=== PATIENT | male | born 1945 | race Caucasian/White ===

== ENCOUNTER 2020-02-26 13:42 | Observation (INO) | payer MEDICARE, OTHER ==
--- NOTE | 2020-02-26 14:34 | EDM.PDOC ---
ED HPI GENERAL MEDICAL PROBLEM - General Chief Complaint: General Time Seen by Provider: 02/26/20 14:34 - History of Present Illness INITIAL COMMENTS - FREE TEXT/NARRATIVE: Nahun presents today for complaints of generalized weakness and malaise for 2+ weeks. [facility] because [facility] was recalled. He states he just received more metformin in the mail. He denies fever, chills, nausea, vomiting, constipation or other concerns. - Related Data Allergies Allergy/AdvReac Type Severity Reaction Status Date / Time No Known Allergies Allergy Verified 02/26/20 18:12 Home Meds: Home Meds Aspirin [Adult Low Dose Aspirin EC] 81 mg PO DAILY 12/14/13 [History] Omeprazole [Prilosec] 20 mg PO DAILY PRN 12/14/13 [History] Pimecrolimus [Elidel] 1 applic TOP BID PRN 12/14/13 [History] Pravastatin [Pravachol] 40 mg PO DAILY 12/14/13 [History] Ibuprofen 600 mg PO ASDIRECTED 12/15/13 [History] Valsartan 80 mg PO DAILY 02/26/20 [History] metFORMIN [Glucophage] 500 mg PO BIDMEALS 02/26/20 [History] Past Medical History HEENT History: Reports: Impaired Vision Cardiovascular History: Reports: Arrhythmia, High Cholesterol, Hypertension, Pacemaker Gastrointestinal History: Reports: GERD Genitourinary History: Reports: Chronic Renal Insuffiency Endocrine/Metabolic History: Reports: Diabetes, Type II - Past Surgical History Cardiovascular Surgical History: Reports: Pacer GI Surgical History: Reports: Hernia Repair/Other Musculoskeletal Surgical History: Reports: Knee Replacement Social & Family History - Tobacco Use Smoking Status *Q: Never Smoker - Caffeine Use Caffeine Use: Reports: Coffee - Recreational Drug Use Recreational Drug Use: No ED ROS GENERAL - Review of Systems Review Of Systems: See Below Constitutional: Reports: Malaise, Weakness, Fatigue, Decreased Appetite, Other (increased thirst). Denies: Fever, Chills, Night Sweats, Diaphoresis, Weight Loss, Weight Gain HEENT: Reports: No Symptoms Respiratory: Reports: No Symptoms Cardiovascular: Reports: No Symptoms Endocrine: Reports: No Symptoms GI/Abdominal: Reports: No Symptoms : Reports: No Symptoms Musculoskeletal: Reports: No Symptoms Skin: Reports: No Symptoms Neurological: Reports: No Symptoms Psychiatric: Reports: No Symptoms Hematologic/Lymphatic: Reports: No Symptoms Immunologic: Reports: No Symptoms ED EXAM, GENERAL - Physical Exam Exam: See Below Exam Limited By: No Limitations General Appearance: Alert, WD/WN, No Apparent Distress Eye Exam: Bilateral Eye: Normal Inspection, PERRL Ears: Normal External Exam, Normal Canal, Hearing Grossly Normal, Normal TMs Nose: Normal Inspection, Normal Mucosa, No Blood Throat/Mouth: Normal Lips, Normal Teeth, Normal Gums, Normal Voice, No Airway Compromise, Other (dry mucous membranes) Head: Atraumatic, Normocephalic Neck: Normal Inspection, Supple, Non-Tender, Full Range of Motion. No: Lymphadenopathy (R), Lymphadenopathy (L) Respiratory/Chest: No Respiratory Distress, Lungs Clear, Normal Breath Sounds, No Accessory Muscle Use, Chest Non-Tender. No: Crackles, Rales, Rhonchi, Wheezing Cardiovascular: Normal Peripheral Pulses, Regular Rate, Rhythm, No Edema, No Murmur, No Rub, Other (Pacemaker) Peripheral Pulses: 2+: Radial (L), Radial (R) GI/Abdominal: Normal Bowel Sounds, Soft, Non-Tender, No Organomegaly, No Distention, No Abnormal Bruit, No Mass Back Exam: Normal Inspection, Full Range of Motion. No: CVA Tenderness (R), CVA Tenderness (L) Extremities: Normal Inspection, Normal Range of Motion, Non-Tender, No Pedal Edema, Normal Capillary Refill Neurological: Alert, Oriented, CN II-XII Intact, Normal Cognition, Normal Gait, Normal Reflexes, No Motor/Sensory Deficits Psychiatric: Normal Affect, Normal Mood Skin Exam: Warm, Dry, Intact, Normal Color, No Rash Lymphatic: No Adenopathy Course - Vital Signs Last Recorded V/S: Last Vital Signs Temp 37.2 C 02/26/20 18:16 Pulse 105 H 02/26/20 18:16 Resp 18 02/26/20 18:16 BP 131/54 L 02/26/20 18:16 Pulse Ox 97 02/26/20 18:16 - Orders/Labs/Meds Orders: Active Orders 24 hr Category Date Time Status CXR [Chest 2V] [CR] Stat Exams 02/26/20 16:54 Taken Sodium Chloride 0.9% [Saline Flush] Med 02/26/20 14:56 Active 10 ml FLUSH ASDIRECTED PRN Saline Lock Insert [OM.PC] Routine Oth 02/26/20 14:56 Ordered Medication Orders Acetaminophen (Tylenol) 650 mg PO Q4H PRN PRN Reason: Pain (Mild 1-3)/fever Aspirin (Halfprin) 81 mg PO DAILY [facility] Sodium Chloride (Normal Saline) 1,000 mls @ 125 mls/hr IV ASDIRECTED [facility] Last Admin: 02/26/20 18:16 Dose: 125 mls/hr Documented by: TIAGO Insulin Human Lispro (Humalog) 0 unit SUBCUT QIDACANDBED [facility]; Protocol Last Admin: 02/26/20 21:20 Dose: 2 units Documented by: NIK Cosigned by: TITO Lorazepam (Ativan) 0.5 mg IVPUSH Q4H PRN PRN Reason: Nausea/Vomiting Magnesium Hydroxide (Milk Of Magnesia) 30 ml PO Q12H PRN PRN Reason: Constipation Melatonin (Melatonin) 9 mg PO BEDTIME PRN PRN Reason: sleep Non-Formulary Medication (Valsartan [Valsartan]) 80 mg PO DAILY [facility] Ondansetron HCl (Zofran) 4 mg IV Q6H PRN PRN Reason: Nausea/Vomiting Ondansetron HCl (Zofran Odt) 4 mg PO Q6H PRN PRN Reason: Nausea able to take PO Senna/Docusate Sodium (Senna Plus) 1 tab PO BID PRN PRN Reason: Constipation Sodium Chloride (Saline Flush) 10 ml FLUSH ASDIRECTED PRN PRN Reason: Keep Vein Open Last Admin: 02/26/20 15:31 Dose: 10 ml Documented by: SORIN Labs: Laboratory Tests 02/26/20 02/26/20 02/26/20 Range/Units 14:55 14:55 14:55 WBC 7.5 (4.5-11.0) K/uL RBC 4.76 (4.30-5.90) M/uL Hgb 14.0 (12.0-15.0) g/dL Hct 40.8 (40.0-54.0) % MCV 86 (80-98) fL MCH 29 (27-31) pg MCHC 34 (32-36) % Plt Count 160 (150-400) K/uL Neut % (Auto) 55 (36-66) % Lymph % (Auto) 26 (24-44) % [place] % (Auto) 17 H (2-6) % Eos % (Auto) 0 L (2-4) % Baso % (Auto) 2 H (0-1) % ESR (0-20) mm/hr Sodium 130 L (140-148) mmol/L Potassium 4.1 (3.6-5.2) mmol/L Chloride 95 L (100-108) mmol/L Carbon Dioxide 25 (21-32) mmol/L Anion Gap 14.1 H (5.0-14.0) mmol/L BUN 29 H (7-18) mg/dL Creatinine 1.9 H (0.8-1.3) mg/dL Est Cr Clr Drug Dosing 31.41 mL/min Estimated GFR (MDRD) 35 L (>60) Glucose 228 H (74-106) mg/dL Lactic Acid (0.4-2.0) mmol/L Calcium 9.2 (8.5-10.1) mg/dL Total Bilirubin 1.6 H (0.2-1.0) mg/dL AST 53 H (15-37) U/L ALT 65 (12-78) U/L Alkaline Phosphatase 83 (46-116) U/L C-Reactive Protein (0.0-0.3) mg/dL Total Protein 8.2 (6.4-8.2) g/dL Albumin 3.6 (3.4-5.0) g/dL Globulin 4.6 H (2.3-3.5) g/dL Albumin/Globulin Ratio 0.8 L (1.2-2.2) TSH, Ultra Sensitive 2.762 (0.358-3.740) uIU/mL Urine Color [place] A (YELLOW) Urine Appearance Slightly cloudy A (CLEAR) Urine pH 5.5 (5.0-8.0) Ur Specific [place] 1.025 (1.008-1.030) Urine Protein Trace H (NEGATIVE) mg/dL Urine Glucose (UA) 100 H (NEGATIVE) mg/dL Urine Ketones Negative (NEGATIVE) mg/dL Urine Occult Blood Negative (NEGATIVE) Urine Nitrite Negative (NEGATIVE) Urine Bilirubin Small H (NEGATIVE) Urine Urobilinogen 1.0 (0.2-1.0) EU/dL Ur Leukocyte Esterase Negative (NEGATIVE) Urine RBC Not seen (0-5) Urine WBC 0-5 (0-5) Ur Epithelial Cells Rare Amorphous Sediment Not seen Urine Bacteria Few Urine Mucus Not seen 02/26/20 02/26/20 02/26/20 Range/Units 16:14 16:14 16:14 WBC (4.5-11.0) K/uL RBC (4.30-5.90) M/uL Hgb (12.0-15.0) g/dL Hct (40.0-54.0) % MCV (80-98) fL MCH (27-31) pg MCHC (32-36) % Plt Count (150-400) K/uL Neut % (Auto) (36-66) % Lymph % (Auto) (24-44) % [place] % (Auto) (2-6) % Eos % (Auto) (2-4) % Baso % (Auto) (0-1) % ESR 88 H (0-20) mm/hr Sodium (140-148) mmol/L Potassium (3.6-5.2) mmol/L Chloride (100-108) mmol/L Carbon Dioxide (21-32) mmol/L Anion Gap (5.0-14.0) mmol/L BUN (7-18) mg/dL Creatinine (0.8-1.3) mg/dL Est Cr Clr Drug Dosing mL/min Estimated GFR (MDRD) (>60) Glucose (74-106) mg/dL Lactic Acid 2.6 H (0.4-2.0) mmol/L Calcium (8.5-10.1) mg/dL Total Bilirubin (0.2-1.0) mg/dL AST (15-37) U/L ALT (12-78) U/L Alkaline Phosphatase (46-116) U/L C-Reactive Protein 6.12 H (0.0-0.3) mg/dL Total Protein (6.4-8.2) g/dL Albumin (3.4-5.0) g/dL Globulin (2.3-3.5) g/dL Albumin/Globulin Ratio (1.2-2.2) TSH, Ultra Sensitive (0.358-3.740) uIU/mL Urine Color (YELLOW) Urine Appearance (CLEAR) Urine pH (5.0-8.0) Ur Specific [place] (1.008-1.030) Urine Protein (NEGATIVE) mg/dL Urine Glucose (UA) (NEGATIVE) mg/dL Urine Ketones (NEGATIVE) mg/dL Urine Occult Blood (NEGATIVE) Urine Nitrite (NEGATIVE) Urine Bilirubin (NEGATIVE) Urine Urobilinogen (0.2-1.0) EU/dL Ur Leukocyte Esterase (NEGATIVE) Urine RBC (0-5) Urine WBC (0-5) Ur Epithelial Cells Amorphous Sediment Urine Bacteria Urine Mucus Patient lab work reviewed, Dr. France notified. Meds: Medications Generic Name Dose Route Start Last Admin Trade Name Freq PRN Reason Stop Dose Admin Acetaminophen 650 mg 02/26/20 17:30 Tylenol PO Q4H PRN Pain (Mild 1-3)/fever Aspirin 81 mg 02/27/20 09:00 Halfprin PO DAILY [facility] Sodium Chloride 1,000 mls @ 125 mls/hr 02/26/20 17:30 02/26/20 18:16 Normal Saline IV 125 mls/hr ASDIRECTED [facility] Administration Insulin Human Lispro 0 unit 02/26/20 20:00 02/26/20 21:20 Humalog SUBCUT 2 units QIDACANDBED [facility] Administration Protocol Lorazepam 0.5 mg 02/26/20 17:30 Ativan IVPUSH Q4H PRN Nausea/Vomiting Magnesium Hydroxide 30 ml 02/26/20 17:30 Milk Of Magnesia PO Q12H PRN Constipation Melatonin 9 mg 02/26/20 17:30 Melatonin PO BEDTIME PRN sleep Non-Formulary Medication 80 mg 02/27/20 09:00 Valsartan [Valsartan] PO DAILY [facility] Ondansetron HCl 4 mg 02/26/20 17:30 Zofran IV Q6H PRN Nausea/Vomiting Ondansetron HCl 4 mg 02/26/20 17:30 Zofran Odt PO Q6H PRN Nausea able to take PO Senna/Docusate Sodium 1 tab 02/26/20 17:30 Senna Plus PO BID PRN Constipation Sodium Chloride 10 ml 02/26/20 14:56 02/26/20 15:31 Saline Flush FLUSH 10 ml ASDIRECTED PRN Administration Keep Vein Open Discontinued Medications Generic Name Dose Route Start Last Admin Trade Name Freq PRN Reason Stop Dose Admin Sodium Chloride 1,000 mls @ 500 mls/hr 02/26/20 15:00 02/26/20 15:31 Normal Saline IV 500 mls/hr ASDIRECTED [facility] Administration Pneumococcal Polyvalent Vaccine 0.5 ml 02/27/20 10:00 Pneumovax 23 IM 02/27/20 10:01 .ONCE ONE - Re-Assessments/Exams Free Text/Narrative Re-Assessment/Exam: 02/26/20 16:[address] [facility]U, dehydration. Patient requests to stay in [facility] for admission and care with use of secondary insurance. Dr. France notified, he will be in to admit patient. Departure - Departure Time of Disposition: 16:51 Disposition: Admitted As Inpatient 65 Condition: Good Clinical Impression: KWAKU (acute kidney injury), Dehydration - Discharge Information Sepsis Event Note (ED) - Evaluation Sepsis Screening Result: No Definite Risk - Focused Exam Vital Signs: Vital Signs Temp Pulse Resp BP Pulse Ox 02/26/20 14:28 36.0 C L 104 H 16 160/85 H 97 02/26/20 14:17 36.0 C L 104 H 16 160/85 H 97 - My Orders Last 24 Hours: My Active Orders 02/26/20 14:56 Sodium Chloride 0.9% [Saline Flush] 10 ml FLUSH ASDIRECTED PRN Saline Lock Insert [OM.PC] Routine - Assessment/Plan Last 24 Hours: My Active Orders 02/26/20 14:56 Sodium Chloride 0.9% [Saline Flush] 10 ml FLUSH ASDIRECTED PRN Saline Lock Insert [OM.PC] Routine Assessment:: KWAKU Dehydration Plan: Patient will be admitted per Dr. France. Admission to [facility] [place] declined by patient. Dr. Caban notified that patient requests to stay in [place].
[2020-02-26] MEDS ORDERED: Sodium Chloride 0.9% 10 ML Syringe FLUSH PRN (14:56)
[2020-02-26] MEDS ORDERED: Sodium Chloride 0.9% 1,000 ML IV SCH (15:00)
--- NOTE | 2020-02-26 17:16 | PCM.HP.2 ---
H&P History of Present Illness - General Date of Service: 02/26/20 Admit Problem/Dx: Admission Diagnosis/Problem Admission Diagnosis/Problem Acute kidney injury Source of Information: Patient, Family, Provider History Limitations: Reports: No Limitations - History of Present Illness Initial Comments - Free Text/Narative: CC: I'm weak HPI: Dioni presents to the emergency room today with several weeks of progressive weakness and fatigue. He reports an insidious onset that has progressed slowly but steadily over the last 3 to maybe 4 weeks. Not much of an appetite and he has had poor oral intake of both food and liquid. He has been sleeping much of the day. He has no energy and fatigues very quickly trying to take care of even basic things around the house or showering. He is not aware of any fevers or chills. He has not had any nausea, vomiting or abdominal pain. No change in bowel or bladder habits other than his urine looks dark compared to usual. He does have occasional shortness of breath but this has not been very impressive. No chest pain. No edema. He was off of his metformin for a while but symptoms were starting even prior to being off the metformin because of a recall. He does not report any myalgias or arthralgias. No known exposures to deer ticks. No sick contacts or travel. No headaches or change in vision. Work-up in the emergency room revealed a creatinine of 1.9 which was about twice is normal. There is a mild elevation of the bilirubin. Inflammatory markers including CRP and sedimentation rate are elevated. The patient is obviously dehydrated and quite weak from baseline. He will be admitted for an expedited work-up. - Related Data Allergies/Adverse Reactions: Allergies Allergy/AdvReac Type Severity Reaction Status Date / Time No Known Allergies Allergy Verified 02/26/20 14:19 Home Medications: Home Meds Aspirin [Adult Low Dose Aspirin EC] 81 mg PO DAILY 12/14/13 [History] Omeprazole [Prilosec] 20 mg PO DAILY 12/14/13 [History] Pimecrolimus [Elidel] 1 applic TOP BID PRN 12/14/13 [History] Pravastatin [Pravachol] 40 mg PO DAILY 12/14/13 [History] Ibuprofen 600 mg PO ASDIRECTED 12/15/13 [History] Valsartan 80 mg PO DAILY 02/26/20 [History] metFORMIN [Glucophage] 500 mg PO BIDMEALS 02/26/20 [History] Past Medical History HEENT History: Reports: Impaired Vision Cardiovascular History: Reports: Arrhythmia, High Cholesterol, Hypertension, Pacemaker Gastrointestinal History: Reports: GERD Genitourinary History: Reports: Chronic Renal Insuffiency Endocrine/Metabolic History: Reports: Diabetes, Type II - Past Surgical History Cardiovascular Surgical History: Reports: Pacer GI Surgical History: Reports: Hernia Repair/Other Musculoskeletal Surgical History: Reports: Knee Replacement Social & Family History - Family History Endocrine/Metabolic: Reports: Diabetes, Type I - Tobacco Use Smoking Status *Q: Never Smoker - Caffeine Use Caffeine Use: Reports: Coffee - Alcohol Use Alcohol Use History: Yes Alcohol Use in Last Twelve Months: Yes - Recreational Drug Use Recreational Drug Use: No H&P Review of Systems - Review of Systems: Review Of Systems: See Below Free Text/Narrative: A complete 12 point review of systems was obtained. Pertinent positives and negatives are noted in the history of present illness. All other systems were reviewed and were negative except as noted. Exam - Exam Exam: See Below - Vital Signs Vital Signs: Last Vital Signs Temp 36.0 C L 02/26/20 14:28 Pulse 104 H 02/26/20 14:28 Resp 16 02/26/20 14:28 BP 160/85 H 02/26/20 14:28 Pulse Ox 97 02/26/20 14:28 Weight: 89.2 kg - Exam Quality Assessment: No: Supplemental Oxygen General: Alert, Oriented, Cooperative. No: Mild Distress HEENT: Conjunctiva Clear. No: Mucosa Moist & [place] (dry), Scleral Icterus Neck: Supple, Trachea Midline. No: Lymphadenopathy Lungs: Clear to Auscultation, Normal Respiratory Effort Cardiovascular: Regular Rate, Regular Rhythm. No: Systolic Murmur GI/Abdominal Exam: Normal Bowel Sounds, Soft, Non-Tender, No Distention, No Mass Back Exam: Normal Inspection, Full Range of Motion Extremities: No Pedal Edema. No: Joint Swelling, Increased Warmth Skin: Warm, Dry, Intact. No: Rash Neuro Extensive - Mental Status: Alert, Oriented x3, Nl Response to Commands Neuro Extensive - Motor, Sensory, Reflexes: No: Dysarthria, Abnormal Motor, Tremor Psychiatric: Alert, Normal Affect - Patient Data Lab Results Last 24 hrs: Laboratory Results - last 24 hr 02/26/20 02/26/20 02/26/20 Range/Units 14:55 14:55 14:55 WBC 7.5 (4.5-11.0) K/uL RBC 4.76 (4.30-5.90) M/uL Hgb 14.0 (12.0-15.0) g/dL Hct 40.8 (40.0-54.0) % MCV 86 (80-98) fL MCH 29 (27-31) pg MCHC 34 (32-36) % Plt Count 160 (150-400) K/uL Neut % (Auto) 55 (36-66) % Lymph % (Auto) 26 (24-44) % [place] % (Auto) 17 H (2-6) % Eos % (Auto) 0 L (2-4) % Baso % (Auto) 2 H (0-1) % ESR (0-20) mm/hr Sodium 130 L (140-148) mmol/L Potassium 4.1 (3.6-5.2) mmol/L Chloride 95 L (100-108) mmol/L Carbon Dioxide 25 (21-32) mmol/L Anion Gap 14.1 H (5.0-14.0) mmol/L BUN 29 H (7-18) mg/dL Creatinine 1.9 H (0.8-1.3) mg/dL Est Cr Clr Drug Dosing 31.41 mL/min Estimated GFR (MDRD) 35 L (>60) Glucose 228 H (74-106) mg/dL Lactic Acid (0.4-2.0) mmol/L Calcium 9.2 (8.5-10.1) mg/dL Total Bilirubin 1.6 H (0.2-1.0) mg/dL AST 53 H (15-37) U/L ALT 65 (12-78) U/L Alkaline Phosphatase 83 (46-116) U/L C-Reactive Protein (0.0-0.3) mg/dL Total Protein 8.2 (6.4-8.2) g/dL Albumin 3.6 (3.4-5.0) g/dL Globulin 4.6 H (2.3-3.5) g/dL Albumin/Globulin Ratio 0.8 L (1.2-2.2) TSH, Ultra Sensitive 2.762 (0.358-3.740) uIU/mL Urine Color [place] A (YELLOW) Urine Appearance Slightly cloudy A (CLEAR) Urine pH 5.5 (5.0-8.0) Ur Specific [place] 1.025 (1.008-1.030) Urine Protein Trace H (NEGATIVE) mg/dL Urine Glucose (UA) 100 H (NEGATIVE) mg/dL Urine Ketones Negative (NEGATIVE) mg/dL Urine Occult Blood Negative (NEGATIVE) Urine Nitrite Negative (NEGATIVE) Urine Bilirubin Small H (NEGATIVE) Urine Urobilinogen 1.0 (0.2-1.0) EU/dL Ur Leukocyte Esterase Negative (NEGATIVE) Urine RBC Not seen (0-5) Urine WBC 0-5 (0-5) Ur Epithelial Cells Rare Amorphous Sediment Not seen Urine Bacteria Few Urine Mucus Not seen 02/26/20 02/26/20 02/26/20 Range/Units 16:14 16:14 16:14 WBC (4.5-11.0) K/uL RBC (4.30-5.90) M/uL Hgb (12.0-15.0) g/dL Hct (40.0-54.0) % MCV (80-98) fL MCH (27-31) pg MCHC (32-36) % Plt Count (150-400) K/uL Neut % (Auto) (36-66) % Lymph % (Auto) (24-44) % [place] % (Auto) (2-6) % Eos % (Auto) (2-4) % Baso % (Auto) (0-1) % ESR 88 H (0-20) mm/hr Sodium (140-148) mmol/L Potassium (3.6-5.2) mmol/L Chloride (100-108) mmol/L Carbon Dioxide (21-32) mmol/L Anion Gap (5.0-14.0) mmol/L BUN (7-18) mg/dL Creatinine (0.8-1.3) mg/dL Est Cr Clr Drug Dosing mL/min Estimated GFR (MDRD) (>60) Glucose (74-106) mg/dL Lactic Acid 2.6 H (0.4-2.0) mmol/L Calcium (8.5-10.1) mg/dL Total Bilirubin (0.2-1.0) mg/dL AST (15-37) U/L ALT (12-78) U/L Alkaline Phosphatase (46-116) U/L C-Reactive Protein 6.12 H (0.0-0.3) mg/dL Total Protein (6.4-8.2) g/dL Albumin (3.4-5.0) g/dL Globulin (2.3-3.5) g/dL Albumin/Globulin Ratio (1.2-2.2) TSH, Ultra Sensitive (0.358-3.740) uIU/mL Urine Color (YELLOW) Urine Appearance (CLEAR) Urine pH (5.0-8.0) Ur Specific [place] (1.008-1.030) Urine Protein (NEGATIVE) mg/dL Urine Glucose (UA) (NEGATIVE) mg/dL Urine Ketones (NEGATIVE) mg/dL Urine Occult Blood (NEGATIVE) Urine Nitrite (NEGATIVE) Urine Bilirubin (NEGATIVE) Urine Urobilinogen (0.2-1.0) EU/dL Ur Leukocyte Esterase (NEGATIVE) Urine RBC (0-5) Urine WBC (0-5) Ur Epithelial Cells Amorphous Sediment Urine Bacteria Urine Mucus Result Diagrams: 02/26/20 14:55 02/26/20 14:55 Imaging Impressions Last 24 hrs: Chest [id number] personally reviewed-lungs are clear with no mass, infiltrate or effusion. He does have a medical insurance collector noted in the left lower chest and appears to be in the bottom of the heart. Sepsis Event Note - Evaluation Sepsis Screening Result: No Definite Risk - Focused Exam Vital Signs: Vital Signs Temp Pulse Resp BP Pulse Ox 02/26/20 14:28 36.0 C L 104 H 16 160/85 H 97 02/26/20 14:17 36.0 C L 104 H 16 160/85 H 97 Date Exam was Performed: 02/26/20 Time Exam was Performed: 17:29 *Q Meaningful Use (ADM) - VTE Risk Assess *Q Each Risk Factor Represents 1 Point: Obesity ( BMI > 25 kg/m2) Total Score 1 Point Risk Factors: 1 Each Risk Factor Represents 2 Points: None Total Score 2 Point Risk Factors: 0 Each Risk Factor Represents 3 Points: Age 75 Years or Greater Total Score 3 Point Risk Factors: 3 Each Risk Factor Represents 5 Points: None Total Score 5 Point Risk Factors: 0 Venous Thromboembolism Risk Factor Score *Q: 4 - Problem List (1) KWAKU (acute kidney injury) SNOMED Code(s): 58830262, 61887428 ICD Code: N17.9 - ACUTE KIDNEY FAILURE, UNSPECIFIED Status: Acute Current Visit: Yes (2) Dehydration SNOMED Code(s): 01301314 ICD Code: E86.0 - DEHYDRATION Status: Acute Current Visit: Yes (3) Weakness SNOMED Code(s): 80355409 ICD Code: R53.1 - WEAKNESS Status: Acute Current Visit: Yes (4) DM II (diabetes mellitus, type II), controlled SNOMED Code(s): 52916969, 904987035 ICD Code: E11.9 - TYPE 2 DIABETES MELLITUS WITHOUT COMPLICATIONS Status: Chronic Current Visit: Yes Qualifiers: Diabetes mellitus intermediate insulin use: without intermediate use Diabetes mellitus complication status: without complication Qualified Code(s): E11.9 - Type 2 diabetes mellitus without complications (5) Essential hypertension SNOMED Code(s): 25453027 ICD Code: I10 - ESSENTIAL (PRIMARY) HYPERTENSION Status: Chronic Current Visit: Yes Problem List Initiated/Reviewed/Updated: Yes Orders Last 24hrs: Active Orders 24 hr Category Date Time Status Patient Status Manage Transfer [TRANSFER] Routine ADT 02/26/20 17:07 Ordered CXR [Chest 2V] [CR] Stat Exams 02/26/20 16:54 Ordered Sodium Chloride 0.9% [Normal Saline] 1,000 ml Med 02/26/20 15:00 Active IV ASDIRECTED Sodium Chloride 0.9% [Saline Flush] Med 02/26/20 14:56 Active 10 ml FLUSH ASDIRECTED PRN Saline Lock Insert [OM.PC] Routine Oth 02/26/20 14:56 Ordered Resuscitation Status Routine Resus Stat 02/26/20 17:08 Ordered Medication Orders Sodium Chloride (Normal Saline) 1,000 mls @ 500 mls/hr IV ASDIRECTED [facility] Last Admin: 02/26/20 15:31 Dose: 500 mls/hr Documented by: SORIN Sodium Chloride (Saline Flush) 10 ml FLUSH ASDIRECTED PRN PRN Reason: Keep Vein Open Last Admin: 02/26/20 15:31 Dose: 10 ml Documented by: SORIN Assessment/Plan Comment:: ASSESSMENT AND PLAN - Acute kidney injury-moderate dehydration is present with exam findings and elevation of the lactic acid. This is the most impressive finding but I do not think this explains his weakness as discussed below. I suspect acute worsening of chronic dehydration over the past several weeks. I would anticipate improvement with fluids. -Continue IV fluids overnight -Encourage oral intake if able -Labs in the morning Generalized weakness and fatigue-ESR and CRP are elevated but no localizing symptoms at this time. This could represent an autoimmune condition with polymyalgia in the differential but no myalgias are noted. With the significant elevation of the sedimentation rate occult malignancy could be considered. He does have a history of needing prostate biopsies and prostate cancer could be considered. Thyroid testing was normal. -PSA in the morning -Increase activity as tolerated after hydration -Consider trial of steroids if malignancy work-up is unremarkable Type 2 diabetes mellitus, controlled-under good control per the patient's history but he has been off of his metformin for a few weeks because of a recall. He just recently restarted the medication. -Hold metformin with abnormal kidney function - Low-dose sliding scale insulin Nocturia-patient reports nocturia about every 2 hours. History of prostate biopsy x2 with normal findings per his report. -PSA in the morning as above Maintenance issues - - DVT prophylaxis -mechanical - GI prophylaxis -not indicated - Nutrition -diabetic diet - Clemente catheter -not indicated CODE STATUS -full code Admission justification -patient will be referred observation status for expedited work-up and hydration. Disposition -I would anticipate discharge home after the hospital stay Primary care physician -[place] [facility] Melvin France M.D. - Mortality Measure Prognosis:: Good
[2020-02-26] MEDS ORDERED: Acetaminophen 325 MG Tab PO PRN (17:30)
[2020-02-26] MEDS ORDERED: Magnesium Hydroxide 400 MG/5 ML Susp 30 ML Cup PO PRN (17:30)
[2020-02-26] MEDS ORDERED: Melatonin 3 MG Tab PO PRN (17:30)
[2020-02-26] MEDS ORDERED: LORazepam 2 MG/ML SDV IVPUSH PRN (17:30)
[2020-02-26] MEDS ORDERED: Ondansetron 4 MG Tab.DIS PO PRN (17:30)
[2020-02-26] MEDS ORDERED: Ondansetron 4 MG/2 ML SDV IV PRN (17:30)
[2020-02-26] MEDS: Sodium Chloride 0.9% 1,000 ML IV SCH (18:16)
[2020-02-26] MEDS: Insulin Lispro 100 Unit/ML 3 ML KwikPen SUBCUT SCH (21:20)
[2020-02-27] MEDS: Sodium Chloride 0.9% 1,000 ML IV SCH (02:43)
[2020-02-27] MEDS: Insulin Lispro 100 Unit/ML 3 ML KwikPen SUBCUT SCH ×2 (08:45→11:28)
[2020-02-27] MEDS ORDERED: VALSARTAN 80 MG PO SCH (09:00)
[2020-02-27] MEDS ORDERED: Aspirin 81 MG Tab.EC PO SCH (09:00)
[2020-02-27] MEDS ORDERED: Losartan 50 MG Tab PO SCH (10:00)
[2020-02-27] MEDS ORDERED: Pneumococcal Polyvalent-23 Vaccine 0.5 ML SDV IM ONE (10:00)
--- NOTE | 2020-02-27 11:09 | PCM.DCSUM1 ---
Discharge Summary - Hospital Course Brief History: 74-year-old male with history of essential hypertension, controlled type 2 diabetes mellitus who presented with progressive weakness and fatigue. He was admitted for management of acute kidney injury with dehydration and expedited work-up. Diagnosis: Stroke: No - Discharge Data Discharge Date: 02/27/20 Discharge Disposition: Home, Self-Care 01 Condition: Good - Referral to Home Health Primary Care Physician: PCP None - Discharge Diagnosis/Problem(s) (1) KWAKU (acute kidney injury) SNOMED Code(s): 34890138, 50832136 ICD Code: N17.9 - ACUTE KIDNEY FAILURE, UNSPECIFIED Status: Acute Current Visit: Yes (2) Dehydration SNOMED Code(s): 81794980 ICD Code: E86.0 - DEHYDRATION Status: Acute Current Visit: Yes (3) Weakness SNOMED Code(s): 77060225 ICD Code: R53.1 - WEAKNESS Status: Acute Current Visit: Yes (4) DM II (diabetes mellitus, type II), controlled SNOMED Code(s): 03005674, 363198810 ICD Code: E11.9 - TYPE 2 DIABETES MELLITUS WITHOUT COMPLICATIONS Status: Chronic Current Visit: Yes Qualifiers: Diabetes mellitus fci insulin use: without fci use Diabetes mellitus complication status: without complication Qualified Code(s): E11.9 - Type 2 diabetes mellitus without complications (5) Essential hypertension SNOMED Code(s): 70129399 ICD Code: I10 - ESSENTIAL (PRIMARY) HYPERTENSION Status: Chronic Current Visit: Yes - Patient Summary/Data Labs Pending at D/C: Lyme disease antibody Serum protein electrophoresis Recommended Follow-up Testing/Procedures: Repeat CRP and ESR at the [facility] Hospital Course: Dioni presented to the emergency room with several weeks of progressive weakness and escalating fatigue. Work-up in the emergency room revealed evidence for dehydration as well as acute kidney injury with a creatinine of 1.9. Lactic acid was mildly elevated at 2.6. There was no strong evidence for infection. CRP was elevated at just over 6 and his sedimentation rate was 88. Chest x-ray was clear. Based on history and examination chronic dehydration with more acute worsening was suspected. He was admitted to the hospital for hydration. Ove rnight following admission there were no acute issues. By the morning after admission his creatinine was down to 1.5. Symptomatically he was feeling much better. His strength had improved. His appetite had improved. Blood sugars did remain mildly elevated. With the elevation of the CRP and sedimentation rate to their respective levels I was somewhat concerned about occult malignancy. Patient did not have any localizing symptoms. His PSA was just over 1. I suspect that this is all related to his chronic dehydration as well with no localizing symptoms and rapid improvement with just IV fluid hydration. He is feeling well enough to go home at this point and I think he is safe to go home. He has been up and walking around without any significant symptoms. Vital signs have all been stable. He was interested in some additional diabetic education so we will set this up for him. He has follow-up scheduled in 9 days and I think this should be sufficient. At the time of his follow-up I would recommend repeating sedimentation rate and CRP as well as kidney function. If sedimentation rate remains significantly elevated additional work-up for malignancy (hematologic? or abdominal) could be considered. I did send off a serum protein electrophoresis as well as a test for the Lyme disease antibody. These are pending at the time of discharge and should be available prior to the follow-up visit. Patient will be contacted if there are any abnormal results. - Patient Instructions Diet: Drink 8-10+ Glasses/Day (goal is 64 ounces of water/sugar free juice daily), Diabetic Diet Activity: As Tolerated Driving: May Drive Today Showering/Bathing: May Shower Notify Provider of: Fever Other/Special Instructions: 1. You were in the hospital for management of acute kidney injury and dehydration which I suspect has been present for several weeks. Your condition has been improving with IV fluid hydration. Your kidney function is much improved and nearly back to normal after hydration overnight. I recommend that you drink 64 ounces of water or sugar-free juice per day to try to maintain your hydration. This is especially important when it is hot and humid and when you are more active outside. 2. Continue your usual home medications as previously prescribed. 3. I have placed a referral for diabetic education. They will contact you early this week to set up an appointment. 4. Follow up with your primary care at the [facility] as scheduled on March 07. Please ask them to recheck your C-reactive protein (CRP) as well as your erythrocyte sedimentation rate (ESR) at the date of the visit. - Discharge Plan Home Medications: Home Meds Aspirin [Adult Low Dose Aspirin EC] 81 mg PO DAILY 12/14/13 [History] Omeprazole [Prilosec] 20 mg PO DAILY PRN 12/14/13 [History] Pimecrolimus [Elidel] 1 applic TOP BID PRN 12/14/13 [History] Pravastatin [Pravachol] 40 mg PO DAILY 12/14/13 [History] Valsartan 80 mg PO DAILY 02/26/20 [History] metFORMIN [Glucophage] 500 mg PO BIDMEALS 02/26/20 [History] Oxygen Therapy Mode: Room Air Patient Handouts: Diabetes Mellitus and Nutrition, Adult, Type 2 Diabetes Mellitus, Self Care, Adult, Dehydration, Adult Referrals: PCP,None [Primary Care Provider] - [facility] Recheck ESR and CRP at that time) - Discharge Summary/Plan Comment DC Time >30 min.: Yes (35-reviewing diagnosis, discussing diabetes and arranging follow-up) - Patient Data Vitals - Most Recent: Last Vital Signs Temp 36.5 C 02/27/20 07:37 Pulse 80 02/27/20 07:37 Resp 16 02/27/20 07:37 BP 131/60 02/27/20 10:17 Pulse Ox 96 02/27/20 07:37 Weight - Most Recent: 89.2 kg I&O - Last 24 hours: Intake & Output 02/26/20 02/27/20 02/27/20 22:59 06:59 14:59 Intake Total 300 1444 Output Total 500 350 Balance 300 944 -350 Lab Results - Last 24 hrs: Laboratory Results - last 24 hr 02/26/20 02/26/20 02/26/20 Range/Units 14:55 14:55 14:55 WBC 7.5 (4.5-11.0) K/uL RBC 4.76 (4.30-5.90) M/uL Hgb 14.0 (12.0-15.0) g/dL Hct 40.8 (40.0-54.0) % MCV 86 (80-98) fL MCH 29 (27-31) pg MCHC 34 (32-36) % Plt Count 160 (150-400) K/uL Neut % (Auto) 55 (36-66) % Lymph % (Auto) 26 (24-44) % [place] % (Auto) 17 H (2-6) % Eos % (Auto) 0 L (2-4) % Baso % (Auto) 2 H (0-1) % ESR (0-20) mm/hr Sodium 130 L (140-148) mmol/L Potassium 4.1 (3.6-5.2) mmol/L Chloride 95 L (100-108) mmol/L Carbon Dioxide 25 (21-32) mmol/L Anion Gap 14.1 H (5.0-14.0) mmol/L BUN 29 H (7-18) mg/dL Creatinine 1.9 H (0.8-1.3) mg/dL Est Cr Clr Drug Dosing 31.41 mL/min Estimated GFR (MDRD) 35 L (>60) Glucose 228 H (74-106) mg/dL POC Glucose (74-106) MG/DL Lactic Acid (0.4-2.0) mmol/L Calcium 9.2 (8.5-10.1) mg/dL Total Bilirubin 1.6 H (0.2-1.0) mg/dL AST 53 H (15-37) U/L ALT 65 (12-78) U/L Alkaline Phosphatase 83 (46-116) U/L C-Reactive Protein (0.0-0.3) mg/dL Total Protein 8.2 (6.4-8.2) g/dL Albumin 3.6 (3.4-5.0) g/dL Globulin 4.6 H (2.3-3.5) g/dL Albumin/Globulin Ratio 0.8 L (1.2-2.2) PSA Screen (0.0-4.0) ug/L TSH, Ultra Sensitive 2.762 (0.358-3.740) uIU/mL Urine Color [place] A (YELLOW) Urine Appearance Slightly cloudy A (CLEAR) Urine pH 5.5 (5.0-8.0) Ur Specific [place] 1.025 (1.008-1.030) Urine Protein Trace H (NEGATIVE) mg/dL Urine Glucose (UA) 100 H (NEGATIVE) mg/dL Urine Ketones Negative (NEGATIVE) mg/dL Urine Occult Blood Negative (NEGATIVE) Urine Nitrite Negative (NEGATIVE) Urine Bilirubin Small H (NEGATIVE) Urine Urobilinogen 1.0 (0.2-1.0) EU/dL Ur Leukocyte Esterase Negative (NEGATIVE) Urine RBC Not seen (0-5) Urine WBC 0-5 (0-5) Ur Epithelial Cells Rare Amorphous Sediment Not seen Urine Bacteria Few Urine Mucus Not seen 02/26/20 02/26/20 02/26/20 Range/Units 16:14 16:14 16:14 WBC (4.5-11.0) K/uL RBC (4.30-5.90) M/uL Hgb (12.0-15.0) g/dL Hct (40.0-54.0) % MCV (80-98) fL MCH (27-31) pg MCHC (32-36) % Plt Count (150-400) K/uL Neut % (Auto) (36-66) % Lymph % (Auto) (24-44) % [place] % (Auto) (2-6) % Eos % (Auto) (2-4) % Baso % (Auto) (0-1) % ESR 88 H (0-20) mm/hr Sodium (140-148) mmol/L Potassium (3.6-5.2) mmol/L Chloride (100-108) mmol/L Carbon Dioxide (21-32) mmol/L Anion Gap (5.0-14.0) mmol/L BUN (7-18) mg/dL Creatinine (0.8-1.3) mg/dL Est Cr Clr Drug Dosing mL/min Estimated GFR (MDRD) (>60) Glucose (74-106) mg/dL POC Glucose (74-106) MG/DL Lactic Acid 2.6 H (0.4-2.0) mmol/L Calcium (8.5-10.1) mg/dL Total Bilirubin (0.2-1.0) mg/dL AST (15-37) U/L ALT (12-78) U/L Alkaline Phosphatase (46-116) U/L C-Reactive Protein 6.12 H (0.0-0.3) mg/dL Total Protein (6.4-8.2) g/dL Albumin (3.4-5.0) g/dL Globulin (2.3-3.5) g/dL Albumin/Globulin Ratio (1.2-2.2) PSA Screen (0.0-4.0) ug/L TSH, Ultra Sensitive (0.358-3.740) uIU/mL Urine Color (YELLOW) Urine Appearance (CLEAR) Urine pH (5.0-8.0) Ur Specific [place] (1.008-1.030) Urine Protein (NEGATIVE) mg/dL Urine Glucose (UA) (NEGATIVE) mg/dL Urine Ketones (NEGATIVE) mg/dL Urine Occult Blood (NEGATIVE) Urine Nitrite (NEGATIVE) Urine Bilirubin (NEGATIVE) Urine Urobilinogen (0.2-1.0) EU/dL Ur Leukocyte Esterase (NEGATIVE) Urine RBC (0-5) Urine WBC (0-5) Ur Epithelial Cells Amorphous Sediment Urine Bacteria Urine Mucus 02/26/20 02/27/20 02/27/20 Range/Units 21:00 05:30 05:30 WBC 5.5 (4.5-11.0) K/uL RBC 3.57 L (4.30-5.90) M/uL Hgb 10.5 L D (12.0-15.0) g/dL Hct 30.9 L (40.0-54.0) % MCV 87 (80-98) fL MCH 29 (27-31) pg MCHC 34 (32-36) % Plt Count 134 L (150-400) K/uL Neut % (Auto) (36-66) % Lymph % (Auto) (24-44) % [place] % (Auto) (2-6) % Eos % (Auto) (2-4) % Baso % (Auto) (0-1) % ESR (0-20) mm/hr Sodium 135 L (140-148) mmol/L Potassium 3.8 (3.6-5.2) mmol/L Chloride 101 (100-108) mmol/L Carbon Dioxide 24 (21-32) mmol/L Anion Gap 13.8 (5.0-14.0) mmol/L BUN 22 H (7-18) mg/dL Creatinine 1.5 H (0.8-1.3) mg/dL Est Cr Clr Drug Dosing 39.78 mL/min Estimated GFR (MDRD) 46 L (>60) Glucose 202 H (74-106) mg/dL POC Glucose 239 H (74-106) MG/DL Lactic Acid (0.4-2.0) mmol/L Calcium 8.1 L (8.5-10.1) mg/dL Total Bilirubin 1.4 H (0.2-1.0) mg/dL AST 41 H (15-37) U/L ALT 45 (12-78) U/L Alkaline Phosphatase 54 (46-116) U/L C-Reactive Protein (0.0-0.3) mg/dL Total Protein 6.0 L (6.4-8.2) g/dL Albumin 2.6 L (3.4-5.0) g/dL Globulin 3.4 (2.3-3.5) g/dL Albumin/Globulin Ratio 0.8 L (1.2-2.2) PSA Screen 1.1 (0.0-4.0) ug/L TSH, Ultra Sensitive (0.358-3.740) uIU/mL Urine Color (YELLOW) Urine Appearance (CLEAR) Urine pH (5.0-8.0) Ur Specific [place] (1.008-1.030) Urine Protein (NEGATIVE) mg/dL Urine Glucose (UA) (NEGATIVE) mg/dL Urine Ketones (NEGATIVE) mg/dL Urine Occult Blood (NEGATIVE) Urine Nitrite (NEGATIVE) Urine Bilirubin (NEGATIVE) Urine Urobilinogen (0.2-1.0) EU/dL Ur Leukocyte Esterase (NEGATIVE) Urine RBC (0-5) Urine WBC (0-5) Ur Epithelial Cells Amorphous Sediment Urine Bacteria Urine Mucus 02/27/20 02/27/20 Range/Units 05:30 07:30 WBC (4.5-11.0) K/uL RBC (4.30-5.90) M/uL Hgb (12.0-15.0) g/dL Hct (40.0-54.0) % MCV (80-98) fL MCH (27-31) pg MCHC (32-36) % Plt Count (150-400) K/uL Neut % (Auto) (36-66) % Lymph % (Auto) (24-44) % [place] % (Auto) (2-6) % Eos % (Auto) (2-4) % Baso % (Auto) (0-1) % ESR (0-20) mm/hr Sodium (140-148) mmol/L Potassium (3.6-5.2) mmol/L Chloride (100-108) mmol/L Carbon Dioxide (21-32) mmol/L Anion Gap (5.0-14.0) mmol/L BUN (7-18) mg/dL Creatinine (0.8-1.3) mg/dL Est Cr Clr Drug Dosing mL/min Estimated GFR (MDRD) (>60) Glucose (74-106) mg/dL POC Glucose 189 H (74-106) MG/DL Lactic Acid 1.1 (0.4-2.0) mmol/L Calcium (8.5-10.1) mg/dL Total Bilirubin (0.2-1.0) mg/dL AST (15-37) U/L ALT (12-78) U/L Alkaline Phosphatase (46-116) U/L C-Reactive Protein (0.0-0.3) mg/dL Total Protein (6.4-8.2) g/dL Albumin (3.4-5.0) g/dL Globulin (2.3-3.5) g/dL Albumin/Globulin Ratio (1.2-2.2) PSA Screen (0.0-4.0) ug/L TSH, Ultra Sensitive (0.358-3.740) uIU/mL Urine Color (YELLOW) Urine Appearance (CLEAR) Urine pH (5.0-8.0) Ur Specific [place] (1.008-1.030) Urine Protein (NEGATIVE) mg/dL Urine Glucose (UA) (NEGATIVE) mg/dL Urine Ketones (NEGATIVE) mg/dL Urine Occult Blood (NEGATIVE) Urine Nitrite (NEGATIVE) Urine Bilirubin (NEGATIVE) Urine Urobilinogen (0.2-1.0) EU/dL Ur Leukocyte Esterase (NEGATIVE) Urine RBC (0-5) Urine WBC (0-5) Ur Epithelial Cells Amorphous Sediment Urine Bacteria Urine Mucus Med Orders - Current: Current Medications Acetaminophen (Tylenol) 650 mg PO Q4H PRN PRN Reason: Pain (Mild 1-3)/fever Aspirin (Halfprin) 81 mg PO DAILY [facility] Last Admin: 02/27/20 08:54 Dose: 81 mg Documented by: Sodium Chloride (Normal Saline) 1,000 mls @ 125 mls/hr IV ASDIRECTED [facility] Last Admin: 02/27/20 02:43 Dose: 125 mls/hr Documented by: Insulin Human Lispro (Humalog) 0 unit SUBCUT QIDACANDBED [facility]; Protocol Last Admin: 02/27/20 08:45 Dose: 1 units Documented by: Lorazepam (Ativan) 0.5 mg IVPUSH Q4H PRN PRN Reason: Nausea/Vomiting Losartan Potassium (Cozaar) 50 mg PO DAILY [facility] Last Admin: 02/27/20 10:17 Dose: 50 mg Documented by: Magnesium Hydroxide (Milk Of Magnesia) 30 ml PO Q12H PRN PRN Reason: Constipation Melatonin (Melatonin) 9 mg PO BEDTIME PRN PRN Reason: sleep Ondansetron HCl (Zofran) 4 mg IV Q6H PRN PRN Reason: Nausea/Vomiting Ondansetron HCl (Zofran Odt) 4 mg PO Q6H PRN PRN Reason: Nausea able to take PO Senna/Docusate Sodium (Senna Plus) 1 tab PO BID PRN PRN Reason: Constipation Sodium Chloride (Saline Flush) 10 ml FLUSH ASDIRECTED PRN PRN Reason: Keep Vein Open Last Admin: 02/26/20 15:31 Dose: 10 ml Documented by: Discontinued Medications Sodium Chloride (Normal Saline) 1,000 mls @ 500 mls/hr IV ASDIRECTED [facility] Last Admin: 02/26/20 15:31 Dose: 500 mls/hr Documented by: Pneumococcal Polyvalent Vaccine (Pneumovax 23) 0.5 ml IM .ONCE ONE Stop: 02/27/20 10:01
[2020-02-28 09:34] LABS: HEMOGLOBIN A1C 8.4 % (4.5-6.2)
--- NOTE | 2020-02-28 09:34 | CR ---
CHEST: 2 view CLINICAL HISTORY:SOB COMPARISON:None FINDINGS: The heart size, pulmonary vascularity and hilar structures are normal. No infiltrate effusion or pneumothorax is seen. There is a monitor device over the left heart. There are atherosclerotic changes in the aorta. IMPRESSION: No acute cardiopulmonary process.
[2020-03-01 14:10] LABS: ALBUMIN 2.7 g/dL (2.9-4.4); ALPHA-1-GLOBULIN 0.2 g/dL (0.0-0.4); ALPHA-2-GLOBULIN 0.5 g/dL (0.4-1.0); BETA GLOBULIN 0.6 g/dL (0.7-1.3); GAMMA GLOBULIN 1.3 g/dL (0.4-1.8); GLOBULIN, TOTAL 2.6 g/dL (2.2-3.9); M-SPIKE Not Observed g/dL (Not Observed); PROTEIN, TOTAL, SERUM 5.3 g/dL (6.0-8.5)
[2020-03-07 02:07] LABS: IGG P18 AB. Absent (.); IGG P23 AB. Absent (.); IGG P28 AB. Absent (.); IGG P30 AB. Absent (.); IGG P39 AB. Absent (.); IGG P41 AB. Present (.); IGG P45 AB. Absent (.); IGG P58 AB. Absent (.); IGG P66 AB. Absent (.); IGG P93 AB. Absent (.); IGM P23 AB. Absent (.); IGM P39 AB. Absent (.); IGM P41 AB. Present (.); LYME IGG WB INTERP. Negative (.); LYME IGG/IGM AB 0.91 ISR (0.00-0.90); LYME IGM WB INTERP. Negative (.)
== END 2020-02-27 11:40 | disposition home or self-care (01) ==
LOC: JP.ED 13:42 → JP.MS 17:07
PROVIDERS: ADMIT Internal Medicine; ATTEND Internal Medicine
DX: N17.9 Acute kidney failure, unspecified (principal); E86.0 Dehydration; E78.00 Pure hypercholesterolemia, unspecified; R35.1 Nocturia; K21.9 Gastro-esophageal reflux disease without esophagitis; E11.22 Type 2 diabetes mellitus with diabetic chronic kidney disease; I12.9 Hypertensive chronic kidney disease with stage 1 through stage 4 chronic kidney disease, or unspecified chronic kidney disease; N18.9 Chronic kidney disease, unspecified; Z79.82 Long term (current) use of aspirin; Z79.84 Long term (current) use of oral hypoglycemic drugs; Z79.899 Other long term (current) drug therapy
CPT/HCPCS: 36415; 71046; 80053; 81001; 82962; 83036; 83605; 84165; 84443; 85025; 85027; 85651; 86140; 96360; 96361; 99285; A9270; G0103; G0378; J1815; J7030; 86617-59; 86618; 99217; 99218; 99284

== ENCOUNTER 2020-03-01 15:49 | Emergency (ER) | payer OTHER ==
--- NOTE | 2020-03-01 17:06 | EDM.PDOC ---
<Sayra Belcher - Last Filed: 03/01/20 19:24> ED HPI GENERAL MEDICAL PROBLEM - General Chief Complaint: General Stated Complaint: MEDICAL Time Seen by Provider: 03/01/20 15:56 Source of Information: Reports: Patient, Family, Old Records, RN, RN Notes Reviewed History Limitations: Reports: No Limitations, Other (Daughter bedside and indicates pt has periods of confusion and not the best historian ) - History of Present Illness INITIAL COMMENTS - FREE TEXT/NARRATIVE: Pt is here with daughter for continuance of same feelings of weakness, fatigue, SOB, night sweats, chills, no appetite, poor food intake, poor oral intake, and reports of reduced kidney function. Pt was admitted for weakness and decline in kidney function. and just released from our facility a day or so ago. Denies pain in any extremity. Wants a COVID test and a lab work up to see whats wrong. Pt goes to [facility] on Friday but wants something done today. Pt lying on stretcher in no visible distress. VSS. Onset: Gradual Duration: Recurring Associated Symptoms: Reports: Confusion, Diaphoresis, Fever/Chills, Loss of Appetite, Malaise, Nausea/Vomiting, Shortness of Breath, Weakness denies Pain Score (Numeric/FACES): 0 - Related Data Allergies Allergy/AdvReac Type Severity Reaction Status Date / Time No Known Allergies Allergy Verified 03/01/20 16:16 Home Meds: Home Meds Aspirin [Adult Low Dose Aspirin EC] 81 mg PO DAILY 12/14/13 [History] Valsartan 80 mg PO DAILY 02/26/20 [History] metFORMIN [Glucophage] 500 mg PO BIDMEALS 02/26/20 [History] Past Medical History HEENT History: Reports: Impaired Vision Cardiovascular History: Reports: Arrhythmia, High Cholesterol, Hypertension, Pacemaker Gastrointestinal History: Reports: GERD Genitourinary History: Reports: Chronic Renal Insuffiency Endocrine/Metabolic History: Reports: Diabetes, Type II - Past Surgical History Cardiovascular Surgical History: Reports: Pacer GI Surgical History: Reports: Hernia Repair/Other Musculoskeletal Surgical History: Reports: Knee Replacement Social & Family History - Family History Endocrine/Metabolic: Reports: Diabetes, Type I - Tobacco Use Smoking Status *Q: Former Smoker Years of Tobacco use: 30 Packs/Tins Daily: 1 Used Tobacco, but Quit: Yes Month/Year Tobacco Last Used: 40 years ago Second Hand Smoke Exposure: No - Caffeine Use Caffeine Use: Reports: Coffee, Soda - Alcohol Use Days Per Week of Alcohol Use: 7 Number of Drinks Per Day: 2 Total Drinks Per Week: 14 Date of Last Drink: 02/18/20 - Recreational Drug Use Recreational Drug Use: No ED ROS GENERAL - Review of Systems Review Of Systems: See Below Constitutional: Reports: Chills, Malaise, Weakness, Fatigue, Night Sweats, Diaphoresis, Decreased Appetite, Weight Loss HEENT: Reports: No Symptoms Respiratory: Reports: Shortness of Breath Cardiovascular: Reports: No Symptoms Endocrine: Reports: Fatigue GI/Abdominal: Reports: Decreased Appetite, Nausea : Reports: No Symptoms Musculoskeletal: Reports: Other (Weakness) Skin: Reports: No Symptoms Neurological: Reports: Confusion, Headache, Weakness Psychiatric: Reports: Confusion Hematologic/Lymphatic: Reports: No Symptoms Immunologic: Reports: No Symptoms ED EXAM, GENERAL - Physical Exam Exam: See Below Course - Re-Assessments/Exams Free Text/Narrative Re-Assessment/Exam: 03/01/20 17:08 Examine pt bedside. Daughter helps with history 03/01/20 18:41 CT of head and labs complete Waiting for dictated CT report 03/01/20 19:15 Departure - Departure Time of Disposition: 18:58 Disposition: DC/Tfer to Court of Law En 21 Condition: Good Clinical Impression: Weakness - Discharge Information *PRESCRIPTION DRUG MONITORING PROGRAM REVIEWED*: Not Applicable *COPY OF PRESCRIPTION DRUG MONITORING REPORT IN PATIENT BRYCE: Not Applicable Instructions: Weakness, [id number] Referrals: PCP,None [Primary Care Provider] - Forms: ED Department Discharge Additional Instructions: Please continue to eat and drink as tolerated. Be sure to make your appointment [facility]. We have included a copy of the labs and diagnostics for todays visit. Please share that with your provider. In the meantime, if you experience, nausea, vomiting, fever, chills, or shortness of breath, please seek medical care as soon as possible. Sepsis Event Note (ED) - Evaluation Sepsis Screening Result: No Definite Risk - Assessment/Plan Assessment:: Please continue to eat and drink as tolerated. Be sure to make your appointment at the [facility] on Friday. We have included a copy of the labs and diagnostics for todays visit. Please share that with your provider. In the meantime, if you experience, nausea, vomiting, fever, chills, or shortness of breath, please seek medical care as soon as possible. <Pipe Wallace - Last Filed: 03/03/20 07:58> Course - Vital Signs Last Recorded V/S: Last Vital Signs Temp 99.2 F 03/01/20 16:29 Pulse 89 03/01/20 18:03 Resp 16 03/01/20 16:29 BP 141/77 H 03/01/20 18:03 Pulse Ox 95 03/01/20 18:03 - Orders/Labs/Meds Labs: Laboratory Tests 03/01/20 03/01/20 Range/Units 17:24 17:24 WBC 5.9 (4.5-11.0) K/uL RBC 3.83 L (4.30-5.90) M/uL Hgb 11.3 L (12.0-15.0) g/dL Hct 33.4 L (40.0-54.0) % MCV 87 (80-98) fL MCH 30 (27-31) pg MCHC 34 (32-36) % Plt Count 161 (150-400) K/uL Neut % (Auto) 49 (36-66) % Lymph % (Auto) 30 (24-44) % [place] % (Auto) 20 H (2-6) % Eos % (Auto) 0 L (2-4) % Baso % (Auto) 1 (0-1) % Sodium 131 L (140-148) mmol/L Potassium 4.0 (3.6-5.2) mmol/L Chloride 98 L (100-108) mmol/L Carbon Dioxide 24 (21-32) mmol/L Anion Gap 13.0 (5.0-14.0) mmol/L BUN 19 H (7-18) mg/dL Creatinine 1.6 H (0.8-1.3) mg/dL Est Cr Clr Drug Dosing 37.30 mL/min Estimated GFR (MDRD) 42 L (>60) Glucose 178 H (74-106) mg/dL Calcium 8.4 L (8.5-10.1) mg/dL Total Bilirubin 1.6 H (0.2-1.0) mg/dL AST 47 H (15-37) U/L ALT 45 (12-78) U/L Alkaline Phosphatase 68 (46-116) U/L C-Reactive Protein 6.70 H (0.0-0.3) mg/dL Total Protein 6.7 (6.4-8.2) g/dL Albumin 2.9 L (3.4-5.0) g/dL Globulin 3.8 H (2.3-3.5) g/dL Albumin/Globulin Ratio 0.8 L (1.2-2.2) Attestation - Student - Attestation Statement Attestation Statement: I personally performed or re-performed the physical examination and medical decision making. I have verified all student documentation or findings, including history, physical exam and/or medical decision making.
--- NOTE | 2020-03-01 19:22 | CRLCT ---
INDICATION: Confusion TECHNIQUE: CT head without contrast. COMPARISON: None. FINDINGS: CSF spaces: Within normal limits for age. Brain parenchyma: No intracranial bleed or mass effect. Seals-white differentiation is distinct. Mild low-density in the deep white matter. Skull base and calvarium: The visualized paranasal sinuses and mastoid air cells demonstrate no acute or significant findings. The visualized orbits are grossly unremarkable. No skull fractures. Atherosclerosis. IMPRESSION: 1. No intracranial bleed or mass effect. 2. Nonspecific white matter disease, likely microangiopathy. Please note that all CT scans at this facility use dose modulation, iterative reconstruction, and/or weight-based dosing when appropriate to reduce radiation dose to as low as reasonably achievable. Dictated by Mayco Salinas MD @ Mar 01 2020 7:16PM Signed by Dr. Mayco Salinas @ Mar 01 2020 7:20PM
== END 2020-03-01 19:40 ==
LOC: JP.ED 15:49
DX: R53.1 Weakness (principal); I12.9 Hypertensive chronic kidney disease with stage 1 through stage 4 chronic kidney disease, or unspecified chronic kidney disease; N18.9 Chronic kidney disease, unspecified; E11.22 Type 2 diabetes mellitus with diabetic chronic kidney disease; Z79.899 Other long term (current) drug therapy; Z87.891 Personal history of nicotine dependence; Z79.82 Long term (current) use of aspirin; Z79.84 Long term (current) use of oral hypoglycemic drugs; Z20.828 Contact with and (suspected) exposure to other viral communicable diseases
CPT/HCPCS: 36415; 70450; 80053; 85025; 86140; 99283; 99285-25; U0002

== ENCOUNTER 2020-04-27 06:20 | Day surgery (SDC) | payer OTHER ==
[2020-04-27] MEDS ORDERED: Sodium Chloride 0.9% 1,000 ML IV SCH (07:00)
[2020-04-27] MEDS ORDERED: fentaNYL 100 MCG/2 ML SDV ONE (07:33)
[2020-04-27] MEDS ORDERED: Propofol 200 MG/20 ML SDV ONE ×2 (07:33→08:20)
--- NOTE | 2020-04-27 11:16 | OR ---
DATE OF PROCEDURE: 04/27/2020 SURGEON: Tony Abbott MD PROCEDURE: Colonoscopy. FINDINGS: 1. Cecal polyp, approximately 5 mm, completely removed using cold biopsy forceps. 2. Rectal polyp, approximately 5 mm, completely removed using cold biopsy forceps. 3. Diverticulosis, moderate, mostly limited to sigmoid colon. COMPLICATIONS: None. SATIN FINISHER: None. ANESTHESIA: MAC. RISKS: Risks, benefits, alternatives, and limitations including, but not limited to infection, bleeding, and perforation were explained to the patient, who wished to proceed. PROCEDURE IN DETAIL: The patient was placed in left lateral decubitus position. Digital rectal exam was performed without abnormalities. The scope was introduced and advanced atraumatically to the ileocecal valve. Within the cecum itself, a small polyp was identified and completely removed. There was a similar polyp in the rectum. The diverticulosis would be described as mild- to-moderate, mostly limited to sigmoid colon without evidence of diverticulitis or bleeding. No evidence of colitis. No abnormalities on retroflexion. Greater than 10 minutes was used to remove the scope. The patient tolerated the procedure well. Tony Abbott MD /[id number]
== END 2020-04-27 11:50 | disposition home or self-care (01) ==
LOC: JP.SDS 06:20
PROVIDERS: ATTEND Surgery
DX: Z12.11 Encounter for screening for malignant neoplasm of colon (principal); D12.0 Benign neoplasm of cecum; D12.8 Benign neoplasm of rectum; K57.30 Diverticulosis of large intestine without perforation or abscess without bleeding; E11.9 Type 2 diabetes mellitus without complications; I10 Essential (primary) hypertension; Z86.010 Personal history of colon polyps
CPT/HCPCS: 45380; J2704; J3010; J7030; 88305

== ENCOUNTER 2024-04-20 14:25 | Emergency (ER) | payer OTHER ==
[2024-04-20] MEDS: Diphtheria,Pertussis(Acell),Tetanus Vaccine 0.5 ML Syringe IM ONE (16:23)
[2024-04-20] MEDS: Lidocaine 1% with EPINEPHrine 1:100,000 20 ML MDV INJECT ONE (16:26)
[2024-04-20] MEDS: Bacitracin Oint 1 GM U/D Packet TOP ONE (17:06)
== END 2024-04-20 17:20 | disposition home or self-care (01) ==
LOC: JP.ED 14:25
DX: S61.411A Laceration without foreign body of right hand, initial encounter (principal); Z23 Encounter for immunization; I10 Essential (primary) hypertension; E11.9 Type 2 diabetes mellitus without complications; Z79.82 Long term (current) use of aspirin; Z79.899 Other long term (current) drug therapy; Z90.49 Acquired absence of other specified parts of digestive tract; W23.0XXA Caught, crushed, jammed, or pinched between moving objects, initial encounter
CPT/HCPCS: 12004; 90471; 90715; 99282-25